=== PATIENT | male | born 1965 | race Caucasian/White ===

== ENCOUNTER → 2025-05-17 17:14 | Outpatient (CLI) | payer OTHER, SELFPAY ==
--- NOTE | 2025-05-17 17:16 | DI.MRI.S_ITS ---
PROCEDURE: MR LUMBAR SPINE WO CON INDICATIONS: RADICULOPATHY TECHNIQUE: Noncontrast sagittal T1 spin echo and T2 fast echo, sagittal STIR, and T2 fast spin echo through the lumbar spine. In cases with scoliosis, additional coronal T2 fast spin echo may be performed. COMPARISON: None. FINDINGS: Image quality: Excellent. Alignment and Curvature: Mild dextrocurvature. Mild retrolisthesis of L2 on L3. Bone Marrow: Marrow is of normal overall signal. No acute vertebral body compression fractures. Spinal Cord: Conus medullaris terminates at the L1 level. Visualized cord demonstrates normal signal and size. Paraspinous Soft Tissues: No paravertebral masses. T12-L1: Normal appearance. L1-L2: Disc desiccation and mild height loss. Mild facet arthropathy. No central canal or neural foraminal stenosis. L2-L3: Disc desiccation and mild height loss. Diffuse disc bulge. Facet arthropathy. No significant central canal stenosis. Bocp-my-ddvkwchc bilateral neural foraminal stenosis. L3-L4: Disc desiccation. Facet arthropathy. No central canal stenosis. Moderate bilateral neural foraminal stenosis. L4-L5: Facet arthropathy. No central canal stenosis. Moderate bilateral neural foraminal stenosis. L5-S1: Disc desiccation and mild disc bulge. Small left paracentral disc protrusion with posterior annular tear. Facet arthropathy. No central canal stenosis. Moderate bilateral neural foraminal stenosis. IMPRESSION: 1. Multilevel degenerative changes of the lumbar spine as described above. 2. No significant central canal stenosis. 3. Moderate neural foraminal stenosis at L3-L4, L4-5 and L5-S1. Dictated by: Jhonathan Lofton M.D. on 05/18/2025 at 10:09 Approved by: Jhonathan Lofton M.D. on 05/18/2025 at 10:14
== END ==
PROVIDERS: PCP Physician Assistant; Referring Provider Physician Assistant; Visit Provider Physician Assistant
DX: M51.16 Intervertebral disc disorders with radiculopathy, lumbar region (principal); M51.17 Intervertebral disc disorders with radiculopathy, lumbosacral region; M48.061 Spinal stenosis, lumbar region without neurogenic claudication; M48.07 Spinal stenosis, lumbosacral region; M47.26 Other spondylosis with radiculopathy, lumbar region; M47.27 Other spondylosis with radiculopathy, lumbosacral region
CPT/HCPCS: 72148